=== PATIENT | male | born 1955 | race Caucasian/White ===

== ENCOUNTER → 2017-07-20 | Outpatient (CLI) | payer BC ==
[~2017-07-20] VITALS: Ht 172.7 cm; Wt 67.1 kg
[~2017-07-20] MED LIST: CATHETER FLUSH 10 ML SYR IV PRN; HYDR-229 PO
[2017-07-20 09:25] VITALS: BP 112/78
[2017-07-20 09:38] VITALS: BP 164/53
[2017-07-20 09:40] VITALS: BP 153/69
[2017-07-20 16:57] VITALS: BP 126/74
--- NOTE | 2017-07-20 16:57 | Cardiology Stress Test Report ---
Stress Test Report Type of NM Stress Test: Test Type: NUCLEAR TREADMILL Date of Procedure/Referring: Date of Procedure: July 20, 2017 PCP Carmen Cota MD Admitting Physician Myah Bermeo MD Indications: Chest pain Baseline Heart Rate: 65 Baseline Blood Pressure: Blood Pressure Systolic: 126 Blood Pressure Diastolic: 74 Baseline EKG: Baseline EKG: sinus rhythm Summary: The patient was brought to the stress test after informed consent was taken. Exercise stress test was performed according to the Dejuan protocol. Patient exercised for 9 minutes and achieved more than 10 mets. Patient achieved over 95 percent of maximum predicted heart rate response. Baseline EKG showed sinus rhythm at 65 bpm and blood pressure 126/74 mmHg. Maximum heart rate was 149 bpm and blood pressure was 171/54 mmHg. 85 percent of the maximum predicted heart rate response was 133 BPM. Patient did not have any chest pain, EKG changes or arrhythmias. Stress test was stopped since almost 100 percent of maximum predicted heart rate response was achieved. 10.56 mCi of Myoview were given for rest imaging and 29.2 mCi of Myoview were given for stress imaging. Transient ischemic dilatation score was 1.08. EF 50- 55 percent. Normal perfusion during stress and rest. Normal wall motion. SSS 0, SRS 0, SDS 0. Conclusion: Normal treadmill test. Excellent functional capacity. Normal LV function. Normal perfusion during rest and stress. Carmen COTA MD July 20, 2017 4:57 pm
== END ==
LOC: CARD 07:25
PROVIDERS: ATTEND Internal Medicine Interventional Cardiology
DX: R07.89 Other chest pain (principal); R42 Dizziness and giddiness
CPT/HCPCS: 78452; 93017

== ENCOUNTER → 2017-08-03 | Outpatient (CLI) | payer BC ==
[~2017-08-03] MED LIST changes: -CATHETER FLUSH 10 ML SYR IV PRN
== END ==
LOC: CARD 09:47
PROVIDERS: ATTEND Internal Medicine Interventional Cardiology
DX: R07.9 Chest pain, unspecified (principal); R42 Dizziness and giddiness
CPT/HCPCS: 93306

== ENCOUNTER → 2021-01-28 | Outpatient (CLI) | payer BC ==
--- NOTE | 2021-01-28 16:24 | Diagnostic Imaging Report ---
INDICATION: Cough and congestion. FINDINGS: PA and lateral views. The lungs are well aerated and clear. There is no air trapping. The heart is not enlarged. No pulmonary edema or hilar adenopathy. No pneumothorax or pleural effusions. No bony abnormalities. IMPRESSION: Normal PA and lateral chest. Dictated by: Dictated on workstation # [id number]
== END ==
LOC: RAD 13:57
PROVIDERS: ATTEND Nurse Practitioner Family
DX: R05.9 Cough, unspecified (principal); R09.81 Nasal congestion
CPT/HCPCS: 71046

== ENCOUNTER → 2022-06-08 | Outpatient (CLI) | payer MEDICARE, OTHER ==
--- NOTE | 2022-06-08 10:21 | Diagnostic Imaging Report ---
PROCEDURE: US carotid duplex, bilateral. TECHNIQUE: Multiple real-time grayscale images were obtained over the carotid arteries in various projections, bilaterally. Additional spectral analysis and color Doppler duplex images were also obtained. INDICATION: Pulsating tinnitus COMPARISON: None FINDINGS: Right carotid: The right common carotid artery demonstrates mild intimal thickening with no high-grade stenosis. There is atherosclerosis at the proximal internal carotid artery with less than 50% narrowing. Carotid upstrokes are brisk. The ECA appears patent. The vertebral artery is antegrade. Left carotid: The left common carotid artery demonstrates mild intimal thickening and atherosclerosis with no stenosis. Carotid upstrokes are brisk. The internal carotid artery appears patent. The ECA is patent. The vertebral artery is antegrade. Parameters based on the consensus panel Cervantes-Scale and Doppler ultrasound criteria published December 2002, Radiology, Volume 229. DOPPLER (peak systolic velocity M/S Right Left CCA .98 1.02 ICA Proximal .73 .94 ICA Mid 1.07 1.04 ICA Distal 1.20 1.11 RATIO 1.23 1.09 ECA 1.11 1.03 VERT .37 1.01 IMPRESSION: 1. Mild atherosclerosis in the bilateral carotid arteries, right greater than left, with no hemodynamically significant stenosis. Dictated by: Dictated on workstation # [id number]
== END ==
LOC: RAD 09:00
PROVIDERS: ATTEND Otolaryngology Otolaryngology/Facial Plastic Surgery
DX: I65.23 Occlusion and stenosis of bilateral carotid arteries (principal); H93.A3 Pulsatile tinnitus, bilateral
CPT/HCPCS: 93880

== ENCOUNTER → 2022-06-22 | Outpatient (CLI) | payer MEDICARE, OTHER ==
[~2022-06-22] MED LIST changes: +GADOTERATE 0.5 MMOL/ML (CLARISCAN) 15 ML VIAL IV ONE
--- NOTE | 2022-06-22 09:39 | Diagnostic Imaging Report ---
CLINICAL INDICATION: Patient with pulsatile tinnitus. EXAM: MRA of the [place] performed without IV contrast using 3D [id number]. Rotating 3D MIP images of the [place] were created. COMPARISON: None. FINDINGS: The petrous, cavernous, and supraclinoid ICA are patent. The bilateral ACAs and distal branches are patent. The anterior communicating artery is patent. The bilateral MCAs and distal branches are patent. The mid to distal intradural bilateral vertebral arteries are patent. 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 The bilateral PICA are not imaged on this exam. The bilateral superior cerebellar arteries and bilateral income tax analyst and distal branches are patent. There is no high flow vascular abnormality in the region of the temporal bones. IMPRESSION: Unremarkable MRA of the [place]. Dictated by: Dictated on workstation # [id number]
--- NOTE | 2022-06-22 10:34 | Diagnostic Imaging Report ---
CLINICAL INDICATION: Patient having pulsating tinnitus. EXAM: MRI of the brain performed without and with 14 mL of Clariscan IV contrast. Multiplanar, multisequence imaging is obtained. COMPARISON: MRA of the [place] without contrast dated 06/22/2022. FINDINGS: There is no evidence of acute cerebral infarct, intracranial hemorrhage, or gross mass effect. The brain parenchymal volume appears appropriate for patient's age. There are several focal areas of high T2 signal white matter changes involving both cerebral hemispheres, likely representing mild chronic small vessel ischemic disease. There is normal reynolds-white matter distinction. There is no significant midline shift or herniation. The [place] vascular structures show no gross abnormality as visualized. The pituitary gland, sella, and suprasellar regions are unremarkable as visualized. There is no evidence of hydrocephalus. The basal cisterns are unremarkable. The skull, extracranial soft tissue, and orbits are unremarkable. The paranasal sinuses are unremarkable. Temporal bones show no significant abnormality. IMPRESSION: 1: There is no evidence of acute intracranial process. There is no abnormal IV contrast enhancement. 2: There are mild age-related brain parenchymal changes with mild chronic small vessel ischemic disease. Dictated by: Dictated on workstation # [id number]
== END ==
LOC: RAD 08:11
PROVIDERS: ATTEND Otolaryngology Otolaryngology/Facial Plastic Surgery
DX: H93.A9 Pulsatile tinnitus, unspecified ear (principal); I67.82 Cerebral ischemia
CPT/HCPCS: 70544; 70553